=== PATIENT | female | born 1940 | race Caucasian/White ===

== ENCOUNTER 2017-01-11 13:40 | Emergency (ER) | payer MEDICARE, OTHER ==
--- NOTE | ~2017-01-11 | CT2 ---
[facility] A Service of [facility] RADIOLOGY TEXT RESULTS PATIENT: SAMIR STATON LOCATION: [facility] : 39 UNIT #: [id number] AGE: [address]: Asad Holland MD SEX: F ORDER DR: [id number] [facility] [address] [place], [place] [address] [id number] E MR#: [id number] Acc #: [id number] NAME: SAMIR STATON. : 1940 SEX: F STUDY DATE/TIME: 01/11/2017 15:36 UNIT: [facility] ROOM: STUDY DESCRIPTION: CT Abd and Pelv W Cont Attending Physician: Js Holland M.D. Ordering Physician: Mei Gamez M.D. Primary Care Physician: Latasha Rasheed M.D. MEDICAL IMAGING REPORT This report is preliminary unless electronic signature is present EXAM CT abdomen and pelvis 01/11/2017 HISTORY Upper quadrant pain 1 week. Nausea vomiting Tuesday, fever. Prior history of diverticulitis. TECHNIQUE This CT exam was performed with one or more of the following radiation dose reduction techniques: automatic exposure control, adjustment of mA and/or kV according to patient size, and iterative reconstruction. FINDINGS CT abdomen and pelvis performed with intravenous administration 100 mL Isovue-370. Enteric contrast also administered. Comparison 02/17/2009. Lung bases show evidence of centrilobular emphysema and mild bronchiectasis. No mucous plugging. Tiny 3 mm nodule left lung base laterally. 12-month CT followup recommended. Not clearly seen on prior study. The inferior heart and pericardium suggest heart upper limits of normal in size. Liver unremarkable. Status post cholecystectomy. Mild biliary ductal prominence without obstructing process seen. Likely physiologic in nature and related to prior cholecystectomy. Spleen, pancreas, adrenal glands unremarkable. Mild bilateral pyelocaliectasis. New compared to prior examination with no obstructing process seen. There is no pathologic ureteral dilatation. No perinephric inflammatory change. No cystic or solid renal lesion. CT Pelvis: No inguinal adenopathy. Prior open reduction internal fixation proximal right femur. Status post hysterectomy. No suspicious adnexal structures. No fluid collections in the pelvis. No pelvic or retroperitoneal adenopathy. Small hiatal hernia. Remainder of visualized STS. [facility] A Service of [facility] RADIOLOGY TEXT RESULTS PATIENT: SAMIR STATON LOCATION: [facility] : 39 UNIT #: [id number] AGE: [address]: Asad Holland MD SEX: F ORDER DR: stomach unremarkable. Small bowel unremarkable. The appendix is not clearly identified but no pericecal or right lower quadrant inflammatory change is seen. Extensive near nelson colonic diverticulosis without CT findings of diverticulitis. No acute appearing colonic abnormality. Atherosclerotic arterial calcifications. No aneurysm. Thoracolumbar scoliosis convex to the left in the lower thoracic and upper lumbar spine to the right in the mid to lower lumbar spine. Degenerative changes in the spine. Mild degenerative grade 1 anterolisthesis L5 on S1. Old healed right posterolateral ninth rib fracture. No acute-appearing bony abnormality. IMPRESSION 1. No clearly acute abnormalities seen in the abdomen or pelvis. 2. Status post cholecystectomy and hysterectomy. 3. Mild biliary ductal prominence. Similar to prior examination and felt to be physiologic in nature and related to prior cholecystectomy. 4. There is mild bilateral pyelocaliectasis. New compared to 2009. No obstructing process is seen. No ureteral dilatation. This is probably physiologic in nature. Kidneys, ureters, urinary bladder otherwise unremarkable. 5. Near nelson colonic diverticulosis without morphologic findings of diverticulitis. 6. Small hiatal hernia. 7. Appendix not visualized but no right lower quadrant pericecal inflammatory change is seen. 8. Scoliosis as described above. Degenerative changes in the spine. 9. Centrilobular emphysema and bronchiectasis at lung bases. No mucous plugging. 10. 3 mm noncalcified nodule left lung base laterally. Likely benign. 12-month CT followup recommended. Dictated by... Matt Wiggins M.D. THIS IS AN ELECTRONICALLY VERIFIED REPORT Matt Wiggins M.D. at 01/12/2017 10:49 PM Malaika TD: 01/11/2017 20:13 JOB #: [id number] MEDICAL IMAGING REPORT Page 1 of 1 COPY
--- NOTE | ~2017-01-11 | CR206 ---
[facility] A Service of [facility] RADIOLOGY TEXT RESULTS PATIENT: SAMIR STATON LOCATION: [facility] : 39 UNIT #: [id number] AGE: [address]: Asad Holland MD SEX: F ORDER DR: [id number] [facility] [address] [place], [place] [address] [id number] E MR#: [id number] Acc #: [id number] NAME: SAMIR STATON : 1940 SEX: F STUDY DATE/TIME: 01/11/2017 14:58 UNIT: [facility] ROOM: STUDY DESCRIPTION: CR Pelvis 1 or 2 Views Attending Physician: Js Holland M.D. Referring Physician: Mateo Fernandez M.D. Ordering Physician: Kaiser Colvin M.D. Primary Care Physician: Latasha Rasheed M.D. MEDICAL IMAGING REPORT This report is preliminary unless electronic signature is present EXAM AP pelvis. HISTORY Pelvic pain toward the right hip and leg for the past week. TECHNIQUE Single AP view of the pelvis was obtained. FINDINGS Postoperative changes of open reduction and internal fixation are seen at the right proximal femur. There is moderate joint space narrowing at both hips without evidence of significant osteophyte formation, fracture, bone destruction or osteochondral fragment. The adjacent acetabulum is intact bilaterally. The sacroiliac joints are symmetric. Ingested oral contrast is seen in the bowel from a recent CT. This could obscure nondisplaced fractures especially involving the sacrum or left side of the pelvis. IMPRESSION Postoperative changes at the right proximal femur. Moderate joint space narrowing at both hips. No acute bony abnormalities are seen. Dictated by... Luke Jordan M.D. THIS IS AN ELECTRONICALLY VERIFIED REPORT Luke Jordan M.D. at 01/12/2017 7:34 AM JAMES/chago TD: 01/11/2017 17:39 JOB #: [id number] [facility] A Service of [facility] RADIOLOGY TEXT RESULTS PATIENT: SAMIR STATON LOCATION: [facility] #: [id number] : 38 UNIT #: [id number] AGE: [address]: Asad Holland MD SEX: F ORDER DR: MEDICAL IMAGING REPORT Page 1 of 1 COPY
--- NOTE | ~2017-01-11 | CR107 ---
[facility] A Service of [facility] RADIOLOGY TEXT RESULTS PATIENT: SAMIR STATON LOCATION: [facility] : 39 UNIT #: [id number] AGE: [address]: Asad Holland MD SEX: F ORDER DR: [id number] [facility] [address] [place], [place] [address] [id number] E MR#: [id number] Acc #: [id number] NAME: SAMIR STATON : 1940 SEX: F STUDY DATE/TIME: 01/11/2017 14:59 UNIT: [facility] ROOM: STUDY DESCRIPTION: CR Femur 2 Views Rt Attending Physician: Asad Holland Ordering Physician: Ed Garo Colvin M.D. Primary Care Physician: Latasha Rasheed M.D. MEDICAL IMAGING REPORT This report is preliminary unless electronic signature is present EXAM Right femur HISTORY Right femur pain for 1 week. Previous surgery. FINDINGS AP and lateral views of the femur were obtained. There is a long intramedullary carito present with an oblique screw through the trochanteric region. There is no evidence of acute injury or recent fracture. IMPRESSION Prior internal fixation of a proximal femur fracture. There is no evidence of acute injury. Dictated by... Slick Kim M.D. THIS IS AN ELECTRONICALLY VERIFIED REPORT Slick Kim M.D. at 01/12/2017 7:09 AM FEL/to TD: 01/11/2017 17:31 JOB #: [id number] MEDICAL IMAGING REPORT Page 1 of 1 COPY
[~2017-01-11 13:40] MED LIST: ACETAMINOPHEN325 MG PO; ACTONEL PO; ALEVE220 M1; ANTIVERT PO; BENTYL10 MG PO; CALTRATE 600+D PO; CALTRATE-600/VI1 TA1 PO; CENTRUM SILVER PO; DIAZEPAM PO; DOCUSATE SODIU100 MG PO; FISH OIL SOFTGE1 CA1 PO; GAS-X80 MG PO; LEVOTHROID50 MCG PO; LOVENOX40 MG/0.4 INJ; MILK OF MAGNESIA PO; MOTION RELIEF25 MG; MOTION SICKNESS25 M4 PO; MULTI-VITAMIN1 TAB PO; OMEGA 3 FISH OI1 CAP PO; PERCOCET5/325 PO; PRAVACHOL PO; RANITIDINE HCL150 M1 PO; RECLAST 55 MG/100 M IV; SYNTHROID PO; TUMS500 MG PO; VALIUM2 MG PO; VITAMIN C250 MG PO; ZANTAC PO; ZANTAC150 MG PO
[2017-01-11 14:05] LABS: BASOPHIL# 0.1 X10e3 (0-0.3); BASOPHIL% 0.6 % (0-2.5); EOSINOPHIL# 0.2 X10e3 (0-0.7); EOSINOPHIL% 1.8 % (0.0-7.0); HEMATOCRIT 40.1 % (35.0-45.0); HEMOGLOBIN 13.2 gm/dL (12.0-16.0); LYMPHOCYTE# 1.7 X10e3 (1.0-3.5); LYMPHOCYTE% 16.1 % (17.0-45.0); MEAN CELL VOLUME 82.9 FL (83-96); MEAN CORPUSCULAR HEMOGLOBIN 27.3 PG (28-34); MEAN CORPUSCULAR HGB CONC 32.9 g/dL (30-36); MONOCYTE# 0.7 X10e3 (0-1.0); MONOCYTE% 6.3 % (3.0-12.0); NEUTROPHIL# 7.8 X10e3 (1.5-7.1); NEUTROPHIL% 75.2 % (40-75); PLATELET COUNT 299 X10e3 (140-420); RED BLOOD COUNT 4.83 X10e (3.90-5.30); RED CELL DISTRIBUTION WIDTH 13.1 % (11.0-15.5); WHITE BLOOD COUNT 10.4 X10e3 (4.0-10.5)
[2017-01-11 14:06] LABS: DIFF IND NO
[2017-01-11 14:11] LABS: URINE SOURCE CLEAN CATCH
[2017-01-11 14:17] LABS: URINE APPEARANCE CLEAR; URINE BILIRUBIN NEG (NEG); URINE BLOOD NEG (NEG); URINE COLOR YELLOW; URINE GLUCOSE NEG (NEG); URINE KETONE NEG (NEG); URINE LEUKOCYTE ESTERASE NEG (NEG); URINE NITRATE NEG (NEG); URINE PH 6.5 (5-8); URINE PROTEIN NEG (NEG); URINE SPECIFIC GRAVITY 1.003 (1.003-1.035); URINE UROBILINOGEN 0.2 MG/DL (NEG)
[2017-01-11 14:23] LABS: CULTURE INDICATED? NO
[2017-01-11 14:26] LABS: ALBUMIN SERUM 3.7 g/dL (3.5-5.0); BILIRUBIN, DIRECT 0.1 mg/dL (0.0-0.2); BILIRUBIN,INDIRECT 0.5 mg/dL (0.0-0.9); BILIRUBIN,TOTAL 0.6 mg/dL (0.2-2.0); BUN/CREATININE RATIO 26.66; CALCIUM SERUM 8.8 mg/dL (8.4-10.2); CREATININE SERUM 0.6 mg/dL (0.6-1.4); GLOM FILT RATE Estimated 87.9 mL/min (>60); POTASSIUM 3.8 mmol/L (3.5-5.1); PROTEIN TOTAL SERUM 7.1 g/dL (6.0-8.3)
== END 2017-01-11 18:05 | disposition home or self-care (01) ==
LOC: CED 13:40
PROVIDERS: Emergency Medicine
DX: M16.11 Unilateral primary osteoarthritis, right hip (principal); K59.00 Constipation, unspecified; Z90.710 Acquired absence of both cervix and uterus; Z90.49 Acquired absence of other specified parts of digestive tract; Z88.8 Allergy status to other drugs, medicaments and biological substances
CPT/HCPCS: 36415; 72170; 73552; 74177; 80048; 80076; 81003; 83690; 85025; 99283; 99284; Q9967